=== PATIENT | male | born 1985 | race African-American/Black ===

== ENCOUNTER 2016-05-15 10:59 | Emergency (ER) | payer SELFPAY ==
[2015-08-30 10:10] VITALS: BP 144/95
== END 2016-05-15 11:40 | disposition left against medical advice (07) ==
LOC: ER 10:59
DX: M54.2 Cervicalgia (principal); Z53.21 Procedure and treatment not carried out due to patient leaving prior to being seen by health care provider; V89.2XXA Person injured in unspecified motor-vehicle accident, traffic, initial encounter; Y93.89 Activity, other specified; Y92.410 Unspecified street and highway as the place of occurrence of the external cause; Y99.8 Other external cause status

== ENCOUNTER 2016-06-16 18:43 | Emergency (ER) | payer SELFPAY ==
[~2016-06-16] VITALS: Ht 190.5 cm; Wt 103.0 kg
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
[2016-06-16 20:26] VITALS: BP 152/93
== END 2016-06-16 20:44 | disposition home or self-care (01) ==
LOC: ER 18:43
DX: M54.2 Cervicalgia (principal); I10 Essential (primary) hypertension; V49.49XA Driver injured in collision with other motor vehicles in traffic accident, initial encounter; Y93.89 Activity, other specified; Y92.89 Other specified places as the place of occurrence of the external cause; Y99.8 Other external cause status
CPT/HCPCS: 72125; 99284-25

== ENCOUNTER 2016-08-15 12:18 | Emergency (ER) | payer SELFPAY ==
[~2016-08-15] VITALS: Ht 193 cm; Wt 106.6 kg
[2016-08-15] MEDS ORDERED: HYDROCODONE/APAP 7.5/325MG TABLET. PO ONE (14:15)
[2016-08-15] MEDS ORDERED: PREDNISONE 10 MG TABLET PO ONE (14:15)
[2016-08-15] MEDS ORDERED: IPRATRPIUM/ALBUTEROL 0.5/2.5MG 3 ML NEBU. NEB ONE (14:15)
--- NOTE | 2016-08-15 14:36 | RAD ---
Chest, 2 views, 08/15/2016: History: Chest pain, shortness of breath Comparison is made to a study from 07/22/2015. The heart size and pulmonary vascularity are normal. No pulmonary infiltrates are seen. There is no evidence of pleural fluid. IMPRESSION: No acute cardiopulmonary abnormality is detected.
--- NOTE | 2016-08-15 14:45 | EKG ---
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
[2016-08-15 14:50] LABS: OBC FLU VALID
[2016-08-15] MEDS ORDERED: PROAIR HFA8.5 GM INH (15:12)
[2016-08-15] MEDS ORDERED: PRED-220 PO (15:12)
--- NOTE | 2016-08-15 15:13 | PHYS DOC ---
Past Medical History Past Medical History: No Pertinent History Past Surgical History: No Surgical History Additional Information: 0.5 PPD Alcohol Use: Occasionally Drug Use: None Adult General Chief Complaint Chief Complaint: SHORTNESS OF BREATH HPI HPI Patient is a 31 year old male who presents with complaint of shortness of breath and chest discomfort. Patient states his symptoms have been present for approximately 2 weeks but started getting worse over the past 2-3 days. Patient states that he is having pain when he takes a deep breath in the upper portion of his chest. Patient has had history of bronchitis and has had take albuterol the past help with symptoms. Patient has had low-grade fevers. Denies productive cough. Patient rates pain as 3 out of 10. Patient has not taken any medications to help with symptoms at this time. Patient denies any other significant past medical history Review of Systems Review of Systems Constitutional: Denies fever or chills [] Eyes: Denies change in visual acuity, redness, or eye pain [] HENT: Denies nasal congestion or sore throat [] Respiratory: Cough, shortness of breath [] Cardiovascular: Chest pain [] GI: Denies abdominal pain, nausea, vomiting, bloody stools or diarrhea [] : Denies dysuria or hematuria [] Musculoskeletal: Denies back pain or joint pain [] Integument: Denies rash or skin lesions [] Neurologic: Denies headache, focal weakness or sensory changes [] Current Medications Current Medications Current Medications Medications (Trade) Dose Ordered Sig/Mackenzie Start Time Stop Time Status Last Admin Dose Admin Acetaminophen/ Hydrocodone Bitart (Lortab 7.5/325) 1 tab 1X ONCE 08/15/16 14:15 08/15/16 14:16 DC 08/15/16 14:52 1 TAB Albuterol/ Ipratropium (Duoneb) 6 ml 1X ONCE 08/15/16 14:15 08/15/16 14:16 DC 08/15/16 14:18 6 ML Prednisone (Prednisone) 50 mg 1X ONCE 08/15/16 14:15 08/15/16 14:16 DC 08/15/16 14:55 50 MG Allergies Allergies Allergies Coded Allergies Type Severity Reaction Last Updated Verified No Known Drug Allergies 09/11/14 No Physical Exam Physical Exam Constitutional: Alert, afebrile, appears in minimal discomfort. [] HENT: Normocephalic, atraumatic, bilateral external ears normal, oropharynx moist, no oral exudates, nose normal. [] Eyes: PERRLA, EOMI, conjunctiva normal, no discharge. [] Neck: Normal range of motion, no tenderness, supple, no stridor. [] Cardiovascular:Heart rate regular rhythm, no murmur [] Lungs & Thorax: Mildly restricted air movement bilaterally, rhonchi bilaterally , no rales [] Abdomen: Bowel sounds normal, soft, no tenderness, no masses, no pulsatile masses. [] Skin: Warm, dry, no erythema, no rash. [] Back: No tenderness, no CVA tenderness. [] Extremities: No tenderness, no cyanosis, no clubbing, ROM intact, no edema. [] Neurologic: Alert and oriented X 3, normal motor function, normal sensory function, no focal deficits noted. [] Current Patient Data Vital Signs Vital Signs Date Time Temp Pulse Resp B/P Pulse Ox O2 Delivery O2 Flow Rate FiO2 08/15/16 15:20 80 16 132/82 99 08/15/16 14:52 Room Air 08/15/16 13:30 96 08/15/16 12:35 99.3 99.3 Lab Values Laboratory Tests Test 08/15/16 14:08 Influenza Type A Antigen Negative (NEGATIVE) Influenza Type B Antigen Negative (NEGATIVE) EKG EKG Interpreted by me: Heart rate 62, sinus rhythm, normal intervals, normal axis, nonspecific T-wave inversion in lead 3, no acute ST elevations or depressions [] Radiology/Procedures Radiology/Procedures [facility] [address] [place] [address] IMAGING REPORT Signed PATIENT: PATRICIA LIVINGSTON ACCOUNT: [id number] : 1985 LOCATION: ER AGE: 31 SEX: M EXAM STATUS: REG ER ORD. PHYSICIAN: DAHLIA WILLETT MD REASON: chest pain, cough, shortness of breath PROCEDURE: CHEST PA & LATERAL Chest, 2 views, 08/15/2016: History: Chest pain, shortness of breath Comparison is made to a study from 07/22/2015. The heart size and pulmonary vascularity are normal. No pulmonary infiltrates are seen. There is no evidence of pleural fluid. IMPRESSION: No acute cardiopulmonary abnormality is detected. DICTATED and SIGNED BY: ZAIRA ACOSTA MD DATE: 08/15/16 1436 CC: DAHLIA WILLETT MD; NO PCP ~ [] Course & Med Decision Making Course & Med Decision Making Pertinent Labs and Imaging studies reviewed. (See chart for details) Patient was given DuoNeb breathing treatments in the emergency department and prednisone. On reevaluation, patient states his symptoms have improved at this time. Patient's symptoms appear consistent with bronchitis. The patient will continue on albuterol and prednisone treatment as outpatient with recommended follow-up in 3-4 days with primary doctor and return to emergency department for any worsening symptoms. Patient voiced understanding and in agreement with treatment plan. Dragon Disclaimer Dragon Disclaimer This electronic medical record was generated, in whole or in part, using a voice recognition dictation system. Departure Departure Impression: Primary Impression: Bronchitis Disposition: HOME, SELF-CARE Condition: IMPROVED Referrals: NO PCP (PCP) Patient Instructions: Bronchitis Additional Instructions: Follow-up with your primary doctor in the next 3-4 days if symptoms are not improving. Return to the emergency department for any worsening symptoms. Scripts Albuterol Sulfate (Proair Hfa Inhaler)8.5 Gm Hfa.aer.ad2 Puff INH Q4-6HRS PRN SHORTNESS OF BREATH #1 INHALER Ref 0 Prov:DAHLIA WILLETT MD 08/15/16 Prednisone 10 Mg [id number] Mg PO DAILY #20 TAB Take this medication starting on August 16, 2016. Prov:DAHLIA WILLETT MD 08/15/16 DAHLIA WILLETT MD Aug 15, 2016 15:13
[2016-08-15 15:20] VITALS: BP 132/82
[2016-08-16 07:26] LABS: NEGATIVE OBC STREP NEG; POSITIVE OBC STREP POS
--- NOTE | 2016-08-20 15:23 | VNOTE ---
CALL BACK NOTE CALL BACK Microbiology 08/15/16 Throat Culture - Final, Complete 08/15/16 - Final, Complete The patient's throat culture returned positive for group G beta-hemolytic strep. I called the patient to inform him of the results. There is no answer. I left a voicemail for him to return phone call. PAOLO CALDERA Aug 20, 2016 15:23
--- NOTE | 2016-08-22 07:36 | VNOTE ---
CALL BACK NOTE CALL BACK Microbiology 08/15/16 Throat Culture - Final, Complete 08/15/16 - Final, Complete Positive strep culture. Spoke to patient, he requested we write him a prescription and he'll come pick it up when he gets off work this evening. 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
== END 2016-08-15 15:28 | disposition home or self-care (01) ==
LOC: ER 12:18
DX: J40 Bronchitis, not specified as acute or chronic (principal); R07.89 Other chest pain; F17.200 Nicotine dependence, unspecified, uncomplicated
CPT/HCPCS: 71020; 87070; 87804; 87880; 93005; 94250; 94640; 99285; J7512; J7620

== ENCOUNTER 2016-12-21 07:54 | Emergency (ER) | payer SELFPAY ==
[~2016-12-21] VITALS: Ht 190.5 cm; Wt 99.8 kg
[~2016-12-21 07:54] MED LIST: PRED-220 PO; PROAIR HFA8.5 GM INH
--- NOTE | 2016-12-21 08:50 | EKG ---
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
[2016-12-21] MEDS ORDERED: IV NORMAL SALINE 1000ML BAG 1,000 ML IV ONE ×2 (09:00→10:45)
[2016-12-21 09:09] LABS: HEMATOCRIT 49.1 % (39.0-53.0); HEMOGLOBIN 16.8 g/dL (13.0-17.5); WHITE BLOOD COUNT 7.4 x10^3/uL (4.0-11.0)
[2016-12-21 10:19] LABS: CALCIUM 10.1 mg/dL (8.5-10.1); CREATININE 2.5 mg/dL (0.7-1.3); GFR 36.4; POTASSIUM 3.9 mmol/L (3.5-5.1)
[2016-12-21 10:25] LABS: ALBUMIN/GLOBULIN RATIO 1.3 (1.0-1.7); TOTAL BILIRUBIN 0.7 mg/dL (0.2-1.0); TOTAL PROTEIN 8.9 g/dL (6.4-8.2)
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
[2016-12-21 11:43] LABS: BARBITURATES NEG (NEG); BENZODIAZEPINES NEG (NEG); CANNABINOIDS POS (NEG); COCAINE NEG (NEG); METHADONE NEG (NEG); OPIATES NEG (NEG); PHENCYCLIDINE POS (NEG)
[2016-12-21 12:06] LABS: BILIRUBIN,URINE NEGATIVE (NEG); GLUCOSE,URINE NEGATIVE (NEG); NITRITE,URINE NEGATIVE (NEG); PROTEIN,URINE NEGATIVE (NEG-TRACE); UROBILINOGEN,URINE 0.2 mg/dL (0.2 mg/dL)
[2016-12-21 12:24] VITALS: BP 140/70
[2016-12-21 12:24] LABS: BACTERIA,URINE 0 /HPF (0-FEW); RBC,URINE 0 /HPF (0-2); WBC,URINE 0 /HPF (0-4)
== END 2016-12-21 12:28 | disposition home or self-care (01) ==
LOC: ER 07:54
DX: R42 Dizziness and giddiness (principal); R55 Syncope and collapse
CPT/HCPCS: 36415; 80053; 80307; 81001; 82550; 85027; 93005; 96360; 96361; 99285; J7030; G0479

== ENCOUNTER 2020-03-02 21:02 | Emergency (ER) | payer SELFPAY ==
[~2020-03-02] VITALS: Ht 190.5 cm; Wt 104.5 kg
[~2020-03-02 21:02] MED LIST changes: +ALBU2.5V8 INH; -PROAIR HFA8.5 GM INH
[2020-03-02 21:05] VITALS: BP 174/87
[2020-03-02] MEDS ORDERED: IV NORMAL SALINE 1000ML BAG 1,000 ML IV ONE (21:30)
== END 2020-03-02 21:39 | disposition left against medical advice (07) ==
LOC: ER 21:02
DX: R04.2 Hemoptysis (principal); Z53.21 Procedure and treatment not carried out due to patient leaving prior to being seen by health care provider